=== PATIENT | female | born 1995 | race Caucasian/White ===

== ENCOUNTER 2020-03-21 00:03 | Inpatient (IN) | payer OTHER ==
[~2020-03-21] VITALS: Ht 167.6 cm; Wt 113.4 kg
--- NOTE | 2020-03-21 00:45 | NUR ---
[facility] RAPID COVID TEST DONE PER ORDER. COVID TEST COLLECTED FROM BOTH NARES W/O ISSUE. PT TOLERATED WELL.
[2020-03-21] MEDS ORDERED: PRENATAL VITAM1 EACH PO (01:25)
[2020-03-21] MEDS ORDERED: GLUCOPHAGE500 MG PO (01:25)
[2020-03-21] MEDS ORDERED: TUMS200 MG PO (01:26)
--- NOTE | 2020-03-21 08:18 | PR ---
[facility] [address] [facility] [place], [place] [address] Signed Progress Notes IP Datetime Report Generated by CPN: 03/21/2020 08:18 PROGRESS NOTES: [id number] Impression: Reassuring Heart Rate Procedures: Artificial ROM Plan: Continue Present Management VITAL SIGNS: [id number] Vital Signs: Reviewed; Within Normal Limits EXAM: [id number] Dilatation: 1.0 Effacement: 50 Station: -2 Contractions: q 2 to 3 min MEMBRANES: [id number] Comments: Still very comfortable though kathryn frequently. Will see how her contractions are after AROM. FETUS A: [id number] FHR Baseline: 130 Variability: Moderate 6-25bpm Accelerations: 15X15 Decelerations: None Presentation: Vertex Comments on Fetus A: No evidence of metabolic acidosis FETUS B: [id number] Signing Physician: Francesca Urrutia MD Copies: ~ *Electronically Signed* 03/21/20817 FRANCESCA URRUTIA MD PATIENT NAME: MAGUI RENTERIA PROGRESS NOTE DATE OF : 89 PHYSICIAN: FRANCESCA URRUTIA MD RPT #: [id number] REPORT IS CONFIDENTIAL AND NOT TO BE RELEASED WITHOUT AUTHORIZATION
--- NOTE | 2020-03-21 17:15 | PR ---
[facility] [address] [place], [place] [address] Signed Progress Notes IP Datetime Report Generated by JOSH: 03/21/2020 17:15 PROGRESS NOTES: [id number] Impression: Reassuring Heart Rate Other Impressions: slow progress, increased temp Procedures: Intrauterine Pressure Catheter; Sterile Vag Exam Plan: Continue Present Management Other Plans: position changes VITAL SIGNS: [id number] Vital Signs: Reviewed; Within Normal Limits EXAM: [id number] Dilatation: 6.0 Effacement: 80 Station: -2 Contractions: q 2 to 3 min MEMBRANES: [id number] Comments: Fairly comfortable but having some back pain. Slow progress. Suspect contractions are not adequate but unsure if baby will tolerate stronger contractions. Will change positions and begin augmentation if status will tolerate. Her temp is elevated and baseline increased as well. This will require close observation. FETUS A: [id number] FHR Baseline: 130 Variability: Moderate 6-25bpm Accelerations: 15X15 Decelerations: None Presentation: Vertex Comments on Fetus A: No evidence of metabolic acidosis FETUS B: [id number] Signing Physician: Francesca Urrutia MD Copies: ~ *Electronically Signed* 03/21/20 1889 FRANCESCA URRUTIA MD PATIENT NAME: MAGUI RENTERIA PROGRESS NOTE DATE OF : 95 PHYSICIAN: FRANCESCA URRUTIA MD RPT #: [id number] REPORT IS CONFIDENTIAL AND NOT TO BE RELEASED WITHOUT AUTHORIZATION
--- NOTE | 2020-03-21 20:28 | PR ---
[facility] [address] [place], [place] [address] Signed Progress Notes IP Datetime Report Generated by CPSilvestre: 03/21/2020 20:28 PROGRESS NOTES: [id number] Impression: Arrest of Dilatation/Descent; Reassuring Heart Rate Other Impressions: slow progress, increased temp Procedures: Scalp Electrode; Sterile Vag Exam Plan: Continue Present Management Other Plans: position changes VITAL SIGNS: [id number] Vital Signs: Reviewed; Within Normal Limits EXAM: [id number] Dilatation: 6.0 Effacement: 80 Station: -2 Contractions: q 2 to 3 min MEMBRANES: [id number] Comments: No progress since 3 pm with adequate contractions for the most part. Will continue to change her positions and watch contractions for now but she may need to be delivered by C/S if no progress is made. FETUS A: [id number] FHR Baseline: 130 Variability: Moderate 6-25bpm Accelerations: 15X15 Decelerations: None Presentation: Vertex Comments on Fetus A: No evidence of metabolic acidosis FETUS B: [id number] Signing Physician: Francesca Urrutia MD Copies: ~ *Electronically Signed* 03/21/202027 FRANCESCA URRUTIA MD PATIENT NAME: MAGUI RENTERIA PROGRESS NOTE DATE OF : 95 PHYSICIAN: FRANCESCA URRUTIA MD RPT #: [id number] REPORT IS CONFIDENTIAL AND NOT TO BE RELEASED WITHOUT AUTHORIZATION
--- NOTE | 2020-03-21 21:38 | PR ---
[facility] [address] [place], [place] [address] Signed Progress Notes IP Datetime Report Generated by CPN: 03/21/2020 21:37 PROGRESS NOTES: [id number] Impression: Arrest of Dilatation/Descent Other Impressions: slow progress, increased temp Procedures: Sterile Vag Exam Plan: Deliver- Section Other Plans: position changes Informed Consent Obtain: Section Delivery; Risks, Benefits and Alternatives Discussed VITAL SIGNS: [id number] Vital Signs: Reviewed; Within Normal Limits EXAM: [id number] Dilatation: 6.0 Effacement: 80 Station: -2 Contractions: q 2 to 3 min MEMBRANES: [id number] Comments: No change in cervix for 6.5 hrs despite adequate contractions. The baby does not tolerate many positions or contractions. I feel C/S is indicated for delivery. PARQ done. FETUS A: [id number] FHR Baseline: 130 Variability: Moderate 6-25bpm Accelerations: 15X15 Decelerations: None Presentation: Vertex Comments on Fetus A: No evidence of metabolic acidosis FETUS B: [id number] Signing Physician: Francesca Urrutia MD Copies: ~ *Electronically Signed* 03/21/202136 FRANCESCA URRUTIA MD PATIENT NAME: MAGUI RENTERIA PROGRESS NOTE DATE OF : 95 PHYSICIAN: FRANCESCA URRUTIA MD RPT #: [id number] REPORT IS CONFIDENTIAL AND NOT TO BE RELEASED WITHOUT AUTHORIZATION
--- NOTE | 2020-03-21 23:10 | NUR ---
03/21/20 2310 Tonia Orellana 2259: PT ARRIVES TO [facility]BC ON BED. BABY AND SIGNIFICANT OTHER AT THE BEDSIDE. BABE IS PUT TO MOMS CHEST TO BREAST FEED.
--- NOTE | 2020-03-22 10:39 | PR ---
[facility] [address] [facility] [place], [place] [address] Signed PP Progress Notes Datetime Report Generated by JOSH: 03/22/2020 10:39 SUBJECTIVE: [id number] Pain: Within Normal Limits Nausea/Vomiting: Denies Vital Signs: [id number] Vital Signs: Reviewed; Within Normal Limits Cardiovascular: Normal Respiratory: Normal Abdomen/Uterus: Abnormal Lochia: Normal Vulva/Perineum: Not Done Breasts: Not Done CVA Tenderness: Not Done Extremities: Normal Incision: Normal Progress: Normal Exam Comments: Abdomen with active BS. Fundus firm, NT @ U-1. H/H 10.2/30.2, WBC 16.9, plat 168k IMPRESSION/PLAN/PROCEDURES: [id number] Impression: Normal Progression Other Plans: ambulate, shower Progress Notes: Doing well. Signing Physician: Francesca Urrutia MD Copies: ~ *Electronically Signed* 03/22/20 1039 FRANCESCA URRUTIA MD PATIENT NAME: MAGUI RENTERIA PROGRESS NOTE DATE OF : 95 PHYSICIAN: FRANCESCA URRUTIA MD RPT #: [id number] REPORT IS CONFIDENTIAL AND NOT TO BE RELEASED WITHOUT AUTHORIZATION
--- NOTE | 2020-03-23 08:51 | PR ---
[facility] [address] [facility] [place], [place] [address] Signed PP Progress Notes Datetime Report Generated by JOSH: 03/23/2020 08:50 SUBJECTIVE: [id number] Pain: Within Normal Limits Nausea/Vomiting: Denies Flatus: Yes Vital Signs: [id number] Vital Signs: Reviewed; Within Normal Limits Cardiovascular: Normal Respiratory: Not Done Abdomen/Uterus: Normal Lochia: Normal Vulva/Perineum: Not Done Breasts: Not Done CVA Tenderness: Not Done Extremities: Normal Incision: Normal Progress: Normal Exam Comments: Abdomen with active BS. Fundus firm, NT @ U-2. IMPRESSION/PLAN/PROCEDURES: [id number] Impression: Normal Progression Plan: Continue Present Management Other Plans: ambulate, shower Procedures: None Progress Notes: Doing well. Probable D/C in am. Signing Physician: Francesca Urrutia MD Copies: ~ *Electronically Signed* 03/23/20 0850 FRANCESCA URRUTIA MD PATIENT NAME: MAUGI RENTERIA PROGRESS NOTE DATE OF : 95 PHYSICIAN: FRANCESCA URRUTIA MD RPT #: [id number] REPORT IS CONFIDENTIAL AND NOT TO BE RELEASED WITHOUT AUTHORIZATION
--- NOTE | 2020-03-24 07:13 | PR ---
[facility] [address] [facility] [place], [place] [address] Signed PP Progress Notes Datetime Report Generated by JOSH: 03/24/2020 07:13 SUBJECTIVE: [id number] Pain: Within Normal Limits Nausea/Vomiting: Denies Flatus: Yes Vital Signs: [id number] Vital Signs: Reviewed; Within Normal Limits Cardiovascular: Not Done Respiratory: Not Done Abdomen/Uterus: Abnormal Lochia: Normal Vulva/Perineum: Not Done Breasts: Not Done CVA Tenderness: Not Done Extremities: Normal Incision: Normal Progress: Normal Exam Comments: Abdomen with active BS. Fundus firm, NT @ U-2. IMPRESSION/PLAN/PROCEDURES: [id number] Impression: Normal Progression Plan: Remove Rosalva; Discharge Other Plans: ambulate, shower Procedures: None Progress Notes: Doing well. She is ready for D/C. Signing Physician: Francesca Urrutia MD Copies: ~ *Electronically Signed* 03/24/20712 FRANCESCA URRUTIA MD PATIENT NAME: MAGUI RENTERIA PROGRESS NOTE DATE OF : 95 PHYSICIAN: FRANCESCA URRUTIA MD RPT #: [id number] REPORT IS CONFIDENTIAL AND NOT TO BE RELEASED WITHOUT AUTHORIZATION
--- NOTE | 2020-03-28 12:22 | OR ---
[facility] [address] [place], [place] [address] Signed DATE OF OPERATION: 03/21/2020 SURGEON: Francesca Urrutia MD DIPLOMA MAKER: Dr. Marcela Joe. PREOPERATIVE DIAGNOSIS: Secondary arrest of dilation, term . POSTOPERATIVE DIAGNOSIS: Secondary arrest of dilation, term , delivered. PROCEDURE: Primary section with low segment transverse uterine incision. ANESTHESIA: Epidural. ESTIMATED BLOOD LOSS: 700 mL. DRAINS: Barrett catheter. INDICATIONS AND FINDINGS: The patient is a 25-year-old female, 2, para 0, AB1, who was admitted for induction at 39 and 2/7th weeks for PUPPP. The patient received one dose of Cytotec. She subsequently underwent artificial rupture of membranes with clear fluid seen. She progressed over time to 6 cm and did not make any further progress after 6-1/2 hours. She had adequate contractions by an intrauterine pressure catheter. status was reassuring for the most part, though there were episodes of late decelerations and variables. At the time of surgery, she was delivered of a little girl from the ROP position via lower segment transverse uterine incision with Apgars of 8 and 9 and weight of 9 pounds 5 ounces. There was a nuchal cord x1. The uterus, tubes, ovaries, and placenta otherwise appeared normal. DESCRIPTION OF PROCEDURE: The patient was prepped and draped in the supine position. A Pfannenstiel skin incision was made. The patient did have extensive stretch graham over the abdominal wall. The Electronically Signed By: FRANCESCA URRUTIA MD 03/28/20 1222 PATIENT NAME: MAGUI RENTERIA OPERATIVE REPORT DATE OF : 95 REPORT #: [id number] PHYSICIAN: FRANCESCA URRUTIA MD PCP: FRANCESCA URRUTIA MD REPORT IS CONFIDENTIAL AND NOT TO BE RELEASED WITHOUT AUTHORIZATION [facility] [address] [place], [place] [address] Signed incision was carried down through the fascia and the incision extended laterally. The inferior and superior fascial flaps were then created. The muscles were bluntly divided. The peritoneum opened bluntly and the incision extended bluntly. The Mickey retractor was then placed. The uterine incision was made at the upper aspect of the peritoneal reflection with the knife. The baby was delivered with the above findings and handed off to the pediatric staff in attendance. Following this, the placenta was removed manually. The uterus explored with a lap tape assuring no remaining fragments. The edges of the incision were identified and the uterus was closed in 2 layers. The first layer was a running locking stitch and the 2nd was a vertical imbricating stitch. Bleeding points on the peritoneal edge were controlled with cautery. The abdomen was then copiously irrigated and inspected and good hemostasis was noted. The retractor was removed and the peritoneum identified. An ACell graft was laid over the lower segment to aid in healing. The peritoneum was then closed with a running suture of 3-0 Vicryl. The muscles were brought together with interrupted sutures of 0 Vicryl. Bleeding points were controlled with cautery. This area was irrigated, inspected, and good hemostasis was noted. ACell powder was sprinkled over the muscles to aid in healing. The fascia was then closed from each angle to the midline with running suture of 0 Vicryl. The subcu space was irrigated and bleeding points controlled with cautery. The deep space was closed with interrupted sutures of 3-0 Vicryl. The skin was closed with leona. All sponge and needle counts were correct. She tolerated the procedure well and was taken to the recovery room in good condition. MD ZARINA Foote/MODL /[id number] cc: Marcela Joe DO Copies: MARCELA JOE DO ~ Electronically Signed By: FRANCESCA URRUTIA MD 03/28/20 1222 PATIENT NAME: MAGUI RENTERIA OPERATIVE REPORT DATE OF : 95 REPORT #: [id number] PHYSICIAN: FRANCESCA URRUTIA MD PCP: FRANCESCA URRUTIA MD REPORT IS CONFIDENTIAL AND NOT TO BE RELEASED WITHOUT AUTHORIZATION
== END 2020-03-24 09:35 | disposition home or self-care (01) | DRG 788 ==
LOC: FBC 00:03 → MS 03-23 12:01 → FBC 03-23 12:39
PROVIDERS: ADMIT Obstetrics & Gynecology; ATTEND Obstetrics & Gynecology
PROC: 10907ZC Drainage of Amniotic Fluid, Therapeutic from Products of Conception, Via Natural or Artificial Opening (ICD-10-PCS; 2020-03-21)
PROC: 10H07YZ Insertion of Other Device into Products of Conception, Via Natural or Artificial Opening (ICD-10-PCS; 2020-03-21)
PROC: 00HU33Z Insertion of Infusion Device into Spinal Canal, Percutaneous Approach (ICD-10-PCS; 2020-03-21)
PROC: 3E0R3BZ Introduction of Anesthetic Agent into Spinal Canal, Percutaneous Approach (ICD-10-PCS; 2020-03-21)
PROC: 3E0P7VZ Introduction of Hormone into Female Reproductive, Via Natural or Artificial Opening (ICD-10-PCS; 2020-03-21)
PROC: 10D00Z1 Extraction of Products of Conception, Low, Open Approach (ICD-10-PCS; principal; 2020-03-21 22:18)
DX: O26.86 Pruritic urticarial papules and plaques of pregnancy (PUPPP) (principal); Z3A.39 39 weeks gestation of pregnancy; Z37.0 Single live birth; O62.0 Primary inadequate contractions; O76 Abnormality in fetal heart rate and rhythm complicating labor and delivery; Z20.822 Contact with and (suspected) exposure to COVID-19; O69.1XX0 Labor and delivery complicated by cord around neck, with compression, not applicable or unspecified; O99.284 Endocrine, nutritional and metabolic diseases complicating childbirth; E28.2 Polycystic ovarian syndrome; E88.81 Metabolic syndrome and other insulin resistance; O99.214 Obesity complicating childbirth; E66.9 Obesity, unspecified; O26.03 Excessive weight gain in pregnancy, third trimester; Z79.899 Other long term (current) drug therapy
CPT/HCPCS: 01961; 85027; 86850; 86900; 86901; A9270; C9803; J0690; J1885; J2001; J2274; J2405; J2590; J2795; J7121; U0003